=== PATIENT | female | born 1970 | race Two or more races ===

== ENCOUNTER 2022-05-13 15:16 | Inpatient (IN) | payer OTHER ==
[~2022-05-13] VITALS: Ht 149.9 cm; Wt 61.2 kg
[2022-05-16] MEDS ORDERED: FEOSOL325 MG PO (08:09)
[2022-05-19] MEDS ORDERED: MEDROXYPROGESTE10 MG (09:23)
[2022-05-19] MEDS ORDERED: MEGESTROL400 MG/10 (09:23)
[2022-05-22] MEDS ORDERED: Tylenol #3 PO (09:07)
[2022-05-22] MEDS ORDERED: NAPR500T14 PO (09:07)
== END 2022-05-22 10:30 | disposition home or self-care (01) | DRG 743 ==
LOC: OB/GYN 05-19 06:23 → O/R 05-19 06:23 → SURH 05-19 07:15 → OB/GYN 05-19 16:07
PROVIDERS: ADMIT Obstetrics & Gynecology; ATTEND Obstetrics & Gynecology
PROC: 0UT70ZZ Resection of Bilateral Fallopian Tubes, Open Approach (ICD-10-PCS; 2022-05-19)
PROC: 0DNW0ZZ Release Peritoneum, Open Approach (ICD-10-PCS; 2022-05-19)
PROC: 0TJB8ZZ Inspection of Bladder, Via Natural or Artificial Opening Endoscopic (ICD-10-PCS; 2022-05-19)
PROC: 0UT90ZZ Resection of Uterus, Open Approach (ICD-10-PCS; principal; 2022-05-19 11:45)
DX: D25.1 Intramural leiomyoma of uterus (principal); N73.6 Female pelvic peritoneal adhesions (postinfective); Z20.822 Contact with and (suspected) exposure to COVID-19